=== PATIENT | female | born 1995 | race African-American/Black ===

== ENCOUNTER 2024-08-22 16:59 | Emergency (ER) | payer OTHER ==
[~2024-08-22] VITALS: Ht 157.5 cm; Wt 72.7 kg
[2024-08-22 17:10] VITALS: TEMP 98.4
[2024-08-22 17:18] LABS: COVID AG,FIA SOURCE NASAL SWAB
[2024-08-22 17:39] LABS: INFLUENZA TYPE B NEGATIVE FOR TYPE B (NEGATIVE); SARS-COV2 (COVID) ANTIGEN,FIA Negative (Negative)
[2024-08-22 17:43] LABS: INFLUENZA TYPE A POSITIVE FOR TYPE A (NEGATIVE)
[2024-08-22] MEDS: KETOROLAC TROMETHAMINE 30 MG/ML VIAL IM ONE (18:35)
[2024-08-22] MEDS: ONDANSETRON 4 MG TABLET PO ONE (18:36)
[2024-08-22] MEDS: ACETAMINOPHEN 325 MG TABLET PO ONE (18:36)
[2024-08-22 18:47] VITALS: BP 135/86; PULSE 90; RESP 18; O2SAT 99
[2024-08-22] MEDS ORDERED: ONDA-104 PO (18:55)
== END 2024-08-22 19:27 | disposition home or self-care (01) ==
LOC: EMS 17:12
DX: J10.1 Influenza due to other identified influenza virus with other respiratory manifestations (principal); R11.0 Nausea; Z20.822 Contact with and (suspected) exposure to COVID-19
CPT/HCPCS: 99283; 87426; 87804; 96372; J1885; Q0162

== ENCOUNTER 2025-05-01 06:13 | Emergency (ER) | payer OTHER ==
[~2025-05-01] VITALS: Ht 157.5 cm; Wt 79.5 kg
[~2025-05-01 06:13] MED LIST: ONDA-104 PO
[2025-05-01 07:08] LABS: PLATELET COUNT (AUTO) 380 K/uL (150-450); RED BLOOD CELL COUNT(AUTO) 5.52 MIL/uL (4.00-5.20); RED CELL DISTRIBUTION WIDTH 13.2 % (11.5-14.5); WHITE BLOOD COUNT (AUTO) 9.1 K/uL (4.5-11.0)
[2025-05-01 07:20] LABS: CALCIUM, TOTAL 8.9 mg/dL (8.8-10.5); CREATININE 1.24 mg/dL (0.60-1.30); GLOMERULAR FILTR. RATE CALC > 60 mL/min (>60); GLUCOSE,RANDOM 98 mg/dL (70-110); SODIUM SERUM 138 mmol/L (136-145); UREA NITROGEN, BLOOD 11 mg/dL (7-18)
[2025-05-01 07:39] LABS: HCG,QUANTITATIVE < 1 mIU/mL (0-6)
[2025-05-01] MEDS: ONDANSETRON HCL 4 MG/2 ML VIAL IVP ONE (08:20)
[2025-05-01] MEDS: SODIUM CHLORIDE 0.9% 2,000 ML IV ONE (08:21)
[2025-05-01 10:03] LABS: APPEARANCE,URINE CLEAR (CLEAR); GLUCOSE, URINE (UA) NEGATIVE (NEGATIVE); LEUKOCYTE ESTERASE ,URINE NEGATIVE (NEGATIVE); NITRATE,URINE NEGATIVE (NEGATIVE); OCCULT BLOOD,URINE LARGE (NEGATIVE); SPECIFIC GRAVITIY, URINE 1.027 (1.003-1.030)
[2025-05-01 10:18] LABS: SQUAMOUS EPITHELIAL CELL,UR Few /LPF (None Seen)
[2025-05-01] MEDS ORDERED: ONDA-104 PO (11:22)
[2025-05-01] MEDS ORDERED: DIPH-1130 PO (11:22)
[2025-05-01] MEDS ORDERED: ACET-66 PO (11:22)
[2025-05-01 11:48] VITALS: BP 127/68; PULSE 68; RESP 18; TEMP 98.1; O2SAT 100
== END 2025-05-01 11:56 | disposition home or self-care (01) ==
LOC: EMS 06:21
DX: K52.9 Noninfective gastroenteritis and colitis, unspecified (principal); R10.30 Lower abdominal pain, unspecified; Z79.899 Other long term (current) drug therapy
CPT/HCPCS: 99285; 74176; 96374; 76856; 96361; 96375; 80048; 81001; 83690; 84702; 85025; 36415; J1171; J2405; J7030